=== PATIENT | male | born 1940 | race Caucasian/White ===

== ENCOUNTER 2018-11-20 13:48 | Observation (INO) ==
[2018-11-20] MEDS ORDERED: Isovue-370 500 ML BOTTLE IVP ONE (14:01)
[2018-11-20] MEDS ORDERED: 0.9 % Sodium Chloride 1,000 ML IVC ONE (14:01)
--- NOTE | 2018-11-20 14:01 | Emergency Department Note ---
Disposition Clinical Impression: Left upper extremity numbness, Left facial numbness, Abnormal finger-nose test Disposition: Admitted As Inpatient Condition: Fair Time of Disposition: 15:33 Neuro HPI - General Stated Complaint: R/O CVA From UC Time Seen by Provider: 11/20/18 13:51 Source: patient Mode of arrival: ambulatory Limitations: no limitations Nursing Notes Reviewed: Yes Vital Signs Reviewed: Yes - History of Present Illness HPI Narrative: Patient presenting to the ED with concerns of her left arm numbness and weakness. Patient reports he was exercising today and at around 11 PM started noticing that his left arm felt funny. Reports difficulty with coordination. 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 Denies any headache or changes in vision. No chest pain or shortness of breath. No abdominal pain. No nausea, vomiting, diarrhea. No history of stroke in the past. No anticoagulants. No head injury. States that the left side of his face. Also got numb. He went to his PCP who sent him to urgent care who sent him over here. Patient reports his symptoms have not improved, but they also have not worsened. - Related Data Home Medications: Home Medications Medication Instructions Recorded Confirmed RX: Cholecalciferol (D-3) [Vitamin 1,000 unit PO DAILY 11/20/18 11/20/18 D] RX: Levothyroxine [Synthroid] 50 mcg PO DAILY 11/20/18 11/20/18 RX: [place]-3/Dha/Epa/Fish Oil [Fish 1 each PO DAILY 11/20/18 11/20/18 Oil 1,000 mg Softgel] RX: Simvastatin 80 mg PO HS 11/20/18 11/20/18 RX: hydrOXYzine HCl [Hydroxyzine 25 mg PO HS PRN 11/20/18 11/20/18 HCl] Previous Rx's Medication Instructions Recorded RX: Clopidogrel [Plavix] 75 mg PO DAILY #30 tablet 11/21/18 Allergies/Adverse Reactions: Allergies Allergy/AdvReac Type Severity Reaction Status Date / Time No Known Allergies Allergy Verified 11/20/18 13:01 Review of Systems: As reviewed in the HPI. All other systems reviewed are negative or normal. Past Medical History - Past Medical History Attestation: Yes The following information was validated with the patient. Source: patient Medical history: Reports: non-contributory Surgical history: Reports: herniorrhaphy Psychiatric history: Reports: no psych history - Social History Smoking Status: Never smoker Smokeless Tobacco Status: No Alcohol use: Reports: none Physical Exam CONSTITUTIONAL: [well appearing, alert and in no acute distress] EYES: [EOMI, clear conjunctiva, PERRLA] HENT: [Normocephalic, atraumatic, moist mucus membranes, normal oropharynx] NECK: [normal inspection, full ROM, trachea midline, no obvious swelling] PULMONARY: [normal lung sounds bilaterally, normal chest rise and fall, no respiratory distress or stridor, no wheezes, no rales, no rhonchi CARDIOVASCULAR: [regular rate, regular rhythm, normal heart sounds, no murmurs, distal extremities are warm and well perfused] GASTROINSTESTINAL: [soft, non-tender, non-rigid, non-distended, no guarding, no rebound, normal bowel sounds] GENITOURINARY/RECTAL: [deferred] NEUROLOGIC: [Alert, oriented x3, normal speech, moves all extremities, his finger to nose is significantly abnormal on the left and is normal on the right, there is no dysdiadochokinesis of either upper extremity, there are no visual field deficits, strength and sensation are normal throughout, cranial nerves II through XII are intact] EXTREMITIES: [Normal inspection, full ROM, no tenderness, no pedal edema, normal capillary refill] MUSCULOSKELETAL: [no gross deformities, atraumatic] SKIN: [No cyanosis, no diaphoresis, normal color, warm, no rash] PSYCHIATRIC: [Anxious] Course - Reevaluation(s) Reevaluation #1: Stroke alert called at 1400. We will then proceed with CTA head and neck has patient does have concerns over her posterior circulation. We will speak with [facility] once imaging is completed [facility] did not recommend TPA as his NIH was low. CTA was unremarkable. They were agreeable with admission here for MRI and further testing. Patient accepted by the hospitalist service. Vital Signs Temperature 97.7 F 11/20/18 14:00 Pulse Rate 86 11/20/18 14:00 Respiratory Rate 88 11/20/18 14:00 Blood Pressure 120/106 11/20/18 14:00 O2 Sat by Pulse Oximetry 98 11/20/18 14:00 Temperature 97.7 F 11/20/18 14:02 Pulse Rate 82 03/25/19 14:34 Respiratory Rate 15 11/20/18 14:34 Blood Pressure 117/85 11/20/18 14:34 O2 Sat by Pulse Oximetry 95 11/20/18 14:34 Oxygen Delivery Oxygen Delivery Room Air Neuro Symptoms/Deficit - Lab Data Result diagrams: 11/21/18 04:52 11/21/18 04:52 Lab Results 11/20/18 11/20/18 Range/Units 14:02 14:02 WBC 9.5 (4.3-11.1) K/mcL RBC 5.62 H (4.19-5.50) M/mcL Hgb 17.7 H (12.9-16.9) g/dL Hct 52.5 H (37.5-50.1) % MCV 93.4 (83.0-100.0) fL MCH 31.5 (28.0-33.3) pg MCHC 33.7 (31.6-35.5) g/dL RDW 12.4 (11.5-14.5) % Plt Count 191 (140-400) K/mcL MPV 9.8 (9.4-12.4) fL PT 12.0 (9.4-12.1) Seconds INR 1.1 APTT 31.3 (26.0-36.0) Seconds NIH Stroke Scale - Level of Consciousness LOC: Alert - LOC Questions LOC Questions: Answers both correctly - LOC Commands LOC Commands: Performs both correctly - Best Gaze Best Gaze: Normal - Visual Visual: No visual loss - Facial Palsy Facial Palsy: Normal - Motor Arms Motor Arm-Left: No drift for 10 seconds Motor Arm-Right: No drift for 10 seconds - Motor Legs Motor Leg-Left: No drift for 5 seconds Motor Leg-Right: No drift for 5 seconds - Limb Ataxia Limb Ataxia: Present in ONE limb - Sensory Sensory: Mild to moderate loss, "not as sharp" - Best Language Best Language: No aphasia - Dysarthria Dysarthria: Normal - Extinction and Inattention Extinction and Inattention: Normal - NIHSS Total Score NIHSS Total Score: 2 TPA Checklist - LKW: 3-4.5 hrs Add. Warnings/Precautions Patient/family understanding: The patient/family members have been counseled and understood the risk, benefit, and alternatives of treatment. Attestation Statement - Attestation Attestation: I, Jersey Coughlin, examined this patient and my medical decision-making was reviewed with the JUNIOR ARCHITECT/PA/Advanced Practice Nurse/Resident Physician. I agree with the documented findings, disposition and treatment plan as described except to the extent set forth below. 78-year-old male presents emergency Department with concerns of acute ataxia. Patient was working on a gym when he suddenly developed difficulty controlling his left upper extremity. Never had symptoms like this in the past. Patient feels like his left upper extremity is weak and he is dropping objects. Denies syncope, fever, vomiting, diarrhea, recent trauma. Stroke alert was called during the initial evaluation. CT of the head was negative for acute fracture or intracranial hemorrhage. CTA head and neck negative for ELVO. [facility] neurology did not recommend TPA. Patient will be admitted to the hospital for further care and evaluation.
[2018-11-20 14:13] LABS: Hematocrit 52.5 % (37.5-50.1); Hemoglobin 17.7 g/dL (12.9-16.9); Mean Corpuscular HGB Conc 33.7 g/dL (31.6-35.5); Mean Corpuscular Hemoglobin 31.5 pg (28.0-33.3); Mean Corpuscular Volume 93.4 fL (83.0-100.0); Mean Platelet Volume 9.8 fL (9.4-12.4); Platelet Count 191 K/mcL (140-400); Red Blood Count 5.62 M/mcL (4.19-5.50); Red Cell Distribution Width 12.4 % (11.5-14.5)
[2018-11-20 14:20] LABS: INR 1.1
[2018-11-20 14:23] LABS: Activated Partial Thrombo Time 31.3 Seconds (26.0-36.0)
[2018-11-20] MEDS ORDERED: Naloxone 0.4 MG/ML INJ IVP PRN (15:48)
[2018-11-20] MEDS ORDERED: Ondansetron 4 MG/2 ML VIAL IVP PRN (15:48)
[2018-11-20 16:14] LABS: Troponin I < 0.03 ng/mL (< 0.04)
[2018-11-20 16:25] LABS: Alanine Aminotransferase 30 Units/L (7-52); Albumin 4.6 g/dL (3.5-5.7); Albumin/Globulin Ratio 1.7 (1.1-2.2); Alkaline Phosphatase 58 Units/L (34-104); Aspartate Amino Transferase 29 Units/L (13-39); BUN/Creatinine Ratio 10 (6-26); Bilirubin,Total 1.1 mg/dL (0.3-1.0); Blood Urea Nitrogen 11 mg/dL (8-23); Calcium 9.7 mg/dL (8.6-10.3); Carbon Dioxide 21 mEq/L (23-29); Chloride 105 mEq/L (98-107); Globulin 2.7 g/dL (2.4-3.5); Glucose 103 mg/dL (70-105); Osmolality,Calculated 286 (280-300); Phosphorous 2.9 mg/dL (2.7-4.5); Potassium 4.2 mEq/L (3.5-5.1); Sodium 138 mEq/L (136-145); Total Protein 7.3 g/dL (6.4-8.9); eGFR For Non-African Americans > 60 (> 60)
--- NOTE | 2018-11-20 16:34 | Internal Med History&Physical ---
Date of Encounter: 11/20/18 Time of Encounter: 16:02 Internal Medicine - H&P: HPI Chief complaint: left arm weakness Admitted From: Home Plans for Post Hospital Care: Home History of present illness: Mr. Webster is a 78 year old male with PMH of HLD, hypothyroidism who was sent to the ER from urgent care for evaluation of acute onset of left arm weakness and left sided facial numbness. Pt is seen and examined with family present at bedside. Pt states he was in his usual state of health today. He went to the gym and did his usual work out. On his way back home, he noted some discomfort in his left hand and arm when he tried putting his seat belt on. He states the weakness/discomfort worsened as he went on to eating his meal. He states that he had difficulty grabbing/holding things in his left hand due to which he went to the urgent care. In the urgent care, he reports of having intermittent left sided facial numbness which abruptly resolved. He was then transferred to [facility]. Stroke alert was called in the ER, NIHSS was low due to which tPA was not recommended by [facility] neurology. Pt underwent CT head, CTA head and neck, all of which were unremarkable for any acute abnormality. During my evaluation, pt continues to have difficulty with left upper extremity mobility but denies any numbness or tingling to the face or extremities. He denies any headache, dizziness, lightheadedness, or vision changes. No changes in ambulatory status is reported. Denies any shortness of breath, chest pain, or any other discomfort at this time. Ten point ROS is negative except as listed above Past Med Surg Social Fam HX - Past Medical History Medical history: hyperlipidemia, thyroid disease Psychiatric history: no psych history - Past Surgical History Surgical History: herniorrhaphy - Social History Smoking Status: Never smoker Smokeless Tobacco Status: No Alcohol use: none Internal Medicine - H&P: Meds Aspirin [Lo-Dose Aspirin EC] 81 mg PO DAILY 11/20/18 [History] Cholecalciferol (D-3) [Vitamin D] 1,000 unit PO DAILY 11/20/18 [History] Levothyroxine [Synthroid] 50 mcg PO DAILY 11/20/18 [History] [place]-3/Dha/Epa/Fish Oil [Fish Oil 1,000 mg Softgel] 1 each PO DAILY 11/20/18 [History] Simvastatin 80 mg PO HS 11/20/18 [History] Allergy/AdvReac Type Severity Reaction Status Date / Time No Known Allergies Allergy Verified 11/20/18 13:01 All Systems PM: A 10-system review of systems was performed and is negative for pertinent findings except as documented above in the HPI. Review of systems: Ten point ROS negative except as listed above - Constitutional Vitals: Temp Pulse Resp BP Pulse Ox 97.7 F 88 20 153/89 98 11/20/18 14:02 11/20/18 15:59 11/20/18 15:59 11/20/18 15:59 11/20/18 15:59 General appearance: Present: A&O X 3, pleasant, no acute distress, answers questions appropriately Exam: General: No acute distress, AAO x 3, pleasant elderly male HEENT: EOMI, PERRLA, NC/AT, no scleral icterus Respiratory: Clear to auscultate bilaterally, no wheezing, no rales Cardiovascular: Regular, Rate, Rhythm, No murmurs GI: Soft, Non tender, non distended, normal bowel sounds Ext: No edema, no tenderness, positive pulses Neuro: AAO x 3, CN II-XII intact, no visual field defects noted, finger to nose is abnormal on the left, no abnormalities noted on the right, full ROM Skin: No cyanosis, no diaphoresis, normal color, warm, no rash Internal Med - H&P Results - Labs CBC & Chem 7: 11/20/18 14:02 11/20/18 14:02 Labs: Short CBC 11/20/18 Range/Units 14:02 WBC 9.5 (4.3-11.1) K/mcL Hgb 17.7 H (12.9-16.9) g/dL Hct 52.5 H (37.5-50.1) % Plt Count 191 (140-400) K/mcL Cardiac Enzymes 11/20/18 Range/Units 14:02 Troponin I < 0.03 (< 0.04) ng/mL - Impressions ITS Impressions Head CT 11/20/18 14:01 IMPRESSION: No acute intracranial abnormality. Results were called by Dr. Mike Calderon MD to Dr. Coughlin on 11/20/2018 at 14:18. D/ / Mike Calderon MD / Mike Calderon MD Interpreting Provider: Mike Calderon MD Head CTA 11/20/18 14:01 IMPRESSION: No high-grade stenosis or focal occlusion involving the intracranial or cervical vasculature. No evidence of acute dissection. No evidence of aneurysm. D/ / 11/20/2018 15:01:07 Claus Yuen MD / fanny Interpreting Provider: Claus Yuen MD Neck CTA 11/20/18 14:02 IMPRESSION: No high-grade stenosis or focal occlusion involving the intracranial or cervical vasculature. No evidence of acute dissection. No evidence of aneurysm. D/ / 11/20/2018 15:01:07 Claus Yuen MD / fanny Interpreting Provider: Claus Yuen MD - Summary of Assessment and Plan Summary of Assessment and Plan: Patient is a pleasant 78y/o male with PMH of hypothyroidism, hyperlipidemia who presented to the ER for evaluation of acute onset of left upper extremity discomfort/weakness. 1. Left upper extremity weakness Clinical presentation concerning for CVA vs. TIA CTA head/neck, CT head negative for acute abnormality f/u MR head f/u 2D echo, carotid doppler PT/OT eval bedside speech eval pending aspirin, statin neurology evaluation requested continue tele monitoring f/u lipid panel 2. HLD continue home medications 3. Hypothyroidism continue home dose of levothyroxine DVT ppx: Heparin SQ LOS < 2 midnights Code status: Full code - Time Spent With Patient Total time spent is greater than 50% in coordination of care (as documented) at patient's floor/unit and/or counseling patient:
[2018-11-20] MEDS: *HR* Heparin 5,000 UNIT/ML VIAL SQ SCH (21:24)
[2018-11-20] MEDS ORDERED: Perflutren Lipid Microsphere 1.3 ML in 0.9 % Sodium Chloride 8.7 ML IVP ONE (21:52)
[2018-11-20] MEDS ORDERED: HydrOXYzine SYP 10 MG/5 ML UDC PO PRN (22:13)
[2018-11-21] MEDS: *HR* Heparin 5,000 UNIT/ML VIAL SQ SCH (05:37)
[2018-11-21 06:10] LABS: Basophils % 0.5 %; Eosinophils # 0.1 K/mcL (0.0-0.6); Eosinophils % 1.2 %; Hemoglobin 16.4 g/dL (12.9-16.9); Immature Granulocytes % 0.3 % (0-4); Lymphocytes % 29.8 %; Mean Corpuscular HGB Conc 33.5 g/dL (31.6-35.5); Mean Corpuscular Hemoglobin 30.8 pg (28.0-33.3); Mean Corpuscular Volume 91.9 fL (83.0-100.0); Mean Platelet Volume 10.5 fL (9.4-12.4); Monocytes # 0.8 K/mcL (0.0-1.3); Monocytes % 12.2 %; Neutrophils # 3.7 K/mcL (1.6-8.9); Platelet Count 163 K/mcL (140-400); Red Blood Count 5.33 M/mcL (4.19-5.50); Red Cell Distribution Width 12.4 % (11.5-14.5)
[2018-11-21 06:31] LABS: BUN/Creatinine Ratio 11 (6-26); Blood Urea Nitrogen 10 mg/dL (8-23); Calcium 8.9 mg/dL (8.6-10.3); Carbon Dioxide 23 mEq/L (23-29); Chloride 108 mEq/L (98-107); Chol/HDL Ratio 2.6 (0-4.9); Cholesterol 112 mg/dL (< 200); Glucose 91 mg/dL (70-105); HDL Cholesterol 43 mg/dL (40-59); LDL Cholesterol,Calculated 42 mg/dL (0-99); Magnesium 2.1 mg/dL (1.6-2.6); Osmolality,Calculated 285 (280-300); Phosphorous 2.7 mg/dL (2.7-4.5); Potassium 3.7 mEq/L (3.5-5.1); Sodium 138 mEq/L (136-145); Triglycerides 136 mg/dL (< 150); eGFR For Non-African Americans > 60 (> 60)
[2018-11-21] MEDS ORDERED: Aspirin Enteric Coated 81 MG Tablet PO SCH (09:00)
[2018-11-21] MEDS ORDERED: Fish Oil 1,000 Mg Softgel PO SCH (09:00)
[2018-11-21] MEDS ORDERED: Cholecalciferol (D-3) 1,000 UNIT TABLET PO SCH (09:00)
--- NOTE | 2018-11-21 09:33 | Internal Med Progress Note ---
Hospitalist Progress Note - Encounter Date of Encounter: 11/21/18 Time of Encounter: 09:31 - Subjective Interval History: Pt seen and examined in the room. He is alert and oriented. reported clumsiness of left hand, but denies weakness or numbness. No trouble speech or facial droop. - Exam Vitals: Temp Pulse Resp BP Pulse Ox 97.8 F 63 16 137/77 97 11/21/18 06:35 11/21/18 06:35 11/21/18 06:35 11/21/18 06:35 11/21/18 06:35 Exam: General: No acute distress, AAO x 3, pleasant elderly male Respiratory: Clear to auscultate bilaterally, no wheezing, no rales Cardiovascular: Regular, Rate, Rhythm, No murmurs GI: Soft, Non tender, non distended, normal bowel sounds Ext: No edema, no tenderness, positive pulses Skin: No cyanosis, no diaphoresis, normal color, warm, no rash. Neurological: Mental status: pt is awake and oriented to person, place, time, and situation Speech: fluent, comprehension, repetition, and naming intact CN: PERRLA, EOMI, intact sensation to light touch, face and smile symmetric, good hearing of whispered word, uvula midline, 5/5 strength of shoulder shrug, no tongue deviation. 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 MRI brain showed acute ischemic stroke at the border of right frontal and parietal lobe. Patient takes aspirin and statins at home. Etiology remains undetermined. Lipid panel showed well controlled with LDL and a normal HDL. Carotid Doppler showed insignificant stenosis of bilateral ICA. Pending echocardiogram. Telemetry tracing revealed and no atrial fibrillation recorded. Neurology consult, appreciate help. (2) Hypothyroidism Current Visit: No Status: Chronic Assessment and Plan: Continue home medication. (3) Hyperlipidemia Current Visit: No Status: Chronic Assessment and Plan: Repeat her lipid panel showed well-controlled LDL and a normal HDL. Continue home statins. (4) DVT prophylaxis Current Visit: Yes Status: Acute Assessment and Plan: Heparin subcutaneous. - Time Spent with Patient Total time spent is greater than 50% in coordination of care (as documented) at patient's floor/unit and/or counseling patient: Greater than 35 minutes Plan of Care Discussed with: patient Internal Medicine: Result - Labs CBC & Chem 7: 11/21/18 04:52 11/21/18 04:52 Labs: Short CBC 11/20/18 11/21/18 Range/Units 14:02 04:52 WBC 9.5 6.5 (4.3-11.1) K/mcL Hgb 17.7 H 16.4 (12.9-16.9) g/dL Hct 52.5 H 49.0 (37.5-50.1) % Plt Count 191 163 (140-400) K/mcL Neutrophils # 3.7 (1.6-8.9) K/mcL BMP 11/20/18 11/21/18 14:02 04:52 Sodium 138 138 Potassium 4.2 3.7 Chloride 105 108 H Carbon Dioxide 21 L 23 BUN 11 10 Creatinine 1.06 0.91 Glucose 103 91 Calcium 9.7 8.9 Cardiac Enzymes 11/20/18 Range/Units 14:02 Troponin I < 0.03 (< 0.04) ng/mL Liver Function 11/20/18 Range/Units 14:02 Total Bilirubin 1.1 H (0.3-1.0) mg/dL AST 29 (13-39) Units/L ALT 30 (7-52) Units/L Alkaline Phosphatase 58 (34-104) Units/L Albumin 4.6 (3.5-5.7) g/dL - ABG Interpretation ABG results: PT/INR, D-dimer PT 12.0 Seconds (9.4-12.1) 11/20/18 14:02 - Impressions Impressions Head CT 11/20/18 14:01 IMPRESSION: No acute intracranial abnormality. Results were called by Dr. Mike Calderon MD to Dr. Coughlin on 11/20/2018 at 14:18. D/ / Mike Calderon MD / Mike Calderon MD Interpreting Provider: Mike Calderon MD Head CTA 11/20/18 14:01 IMPRESSION: No high-grade stenosis or focal occlusion involving the intracranial or cervical vasculature. No evidence of acute dissection. No evidence of aneurysm. D/ / 11/20/2018 15:01:07 Claus Yuen MD / fanny Interpreting Provider: Claus Yuen MD Neck CTA 11/20/18 14:02 IMPRESSION: No high-grade stenosis or focal occlusion involving the intracranial or cervical vasculature. No evidence of acute dissection. No evidence of aneurysm. D/ / 11/20/2018 15:01:07 Claus Yuen MD / fanny Interpreting Provider: Claus Yuen MD Brain MRI 11/20/18 15:50 IMPRESSION: Mild small vessel ischemic change with multiple small prior lacunar infarcts Acute infarct in the right posterior frontal parietal junction cortex. D/ / Walter Ortega / Walter Ortega Interpreting Provider: Walter Ortega Consult Discharge Plan - Plan Referrals: Blanco Orta MD [Primary Care Provider] - 11/27/18 9:00 am () _ (2) Hypothyroidism Qualifiers: Hypothyroidism type: unspecified Qualified Code(s): E03.9 - Hypothyroidism, unspecified (3) Hyperlipidemia Qualifiers: Hyperlipidemia type: unspecified Qualified Code(s): E78.5 - Hyperlipidemia, unspecified
--- NOTE | 2018-11-21 10:01 | Neurology - Consult Note ---
<Cathleen Bass - Last Filed: 11/21/18 12:05> Date of Encounter: 11/21/18 Time of Encounter: 09:56 Assessment and Plan (1) Acute ischemic right middle cerebral artery (MCA) stroke Status: Acute 78yo male with acute infarction right posterior frontal parietal junctuon co rtex. With left upper extremity ataxia and numbness. -risk factor age, HLD -Head CT, neck/had CTA showed no acute intracranial abnormality. -brain MRI was performed admitted showed acute infarct in the right posterior frontal parietal junction cortex. Mild small vessel ischemic change with multiple small prior lacunar infarcts. -echo: EF=60%, no PFO recommendations: Patient has an acute infarction right posterior frontal parietal junctuon cortex despite taking simvastatin and aspirin. His aspirin should be discontinued and started on plavix daily with statin. PT/OT could be done. Will await the carotid u/s results. History of Present Illness Chief complaint: Left arm weakness HPI: Mr. Webster is a 78 year old male with past medical history of hyperlipidemia and hypothyroidism who presented to [facility] on 11/20/2018 due to left arm weakness. Nephrology was consulted on 11/21/2018 for TIA. Upon my examination the patient reports that his left upper extremity numbness and tingling is resolved and he has better coordination in it as well compared to yesterday. He stated yesterday after he left [place] he got into his car and noticed numbness and tingling of his left upper extremity and had difficulty with putting on his seatbelt. He felt like he had no control of his left upper extremity. This occurred about 11 AM. He went home but then later went to urgent care whom sent him to the ED. He denied fever, chills, confusion, dysarthria, vertigo, ataxia, headache, fall, trauma. He denied palpitations however sometimes he does note his heart skips a beat. He denied smoking, drug use, alcohol use. He is active in works out with [employer] Tuesday, Tuesday, Tuesday. He has never had a stroke or MT. In the emergency department vitals were unremarkable. CBC, CMP, PT/INR, magnesium, lipid panel were all unremarkable. A stroke alert was called and [facility] neurology does not recommend TPA due to low NIHSS score. Head CT, neck/had CTA showed no acute intracranial abnormality. A brain MRI was performed admitted showed acute infarct in the right posterior frontal parietal junction cortex. Mild small vessel ischemic change with multiple small prior lacunar infarcts. Past Med Surg Social Fam HX - Past Medical History Attestation: Yes The following information was validated with the patient. Source: patient Medical history: hyperlipidemia, thyroid disease Psychiatric history: no psych history - Past Surgical History Surgical History: herniorrhaphy Additional surgical history: tonsilectomy - Social History Smoking Status: Never smoker Smokeless Tobacco Status: No Alcohol use: none Drug use: none - Family History Father Living Status: Age at : 72 Cause of : MT Mother Living Status: Age at : 85 Cause of : CVA complicaitons Medications and Allergies RX: Cholecalciferol (D-3) [Vitamin D] 1,000 unit PO DAILY 11/20/18 [History] RX: Levothyroxine [Synthroid] 50 mcg PO DAILY 11/20/18 [History] RX: [place]-3/Dha/Epa/Fish Oil [Fish Oil 1,000 mg Softgel] 1 each PO DAILY 11/20/18 [History] RX: Simvastatin 80 mg PO HS 11/20/18 [History] RX: hydrOXYzine HCl [Hydroxyzine HCl] 25 mg PO HS PRN 11/20/18 [History] RX: Clopidogrel [Plavix] 75 mg PO DAILY #30 tablet 11/21/18 [Rx] Allergy/AdvReac Type Severity Reaction Status Date / Time No Known Allergies Allergy Verified 11/20/18 13:01 All Systems: The remainder of the systems were reviewed and are negative - Constitutional Constitutional ROS IM: weakness, no chills, no fatigue, no fever(s), no frequent falls, no headache(s) - Nose, Mouth, Throat Nose, mouth and throat: no disequilibrium, no dizziness, no vertigo - Cardiovascular Cardiovascular ROS IM: no chest pain, no palpitations - Respiratory Respiratory IM: no cough, no dyspnea, no wheezing - Gastrointestinal Gastrointestinal: no abdominal pain, no nausea, no vomiting - Musculoskeletal Musculoskeletal ROS IM: no joint swelling, no neck pain - Integumentary Integumentary IM: no new lesions, no skin ulcer - Neurological Neurological ROS: lack of coordination, numbness, paresthesias, no abnormal gait, no abnormal hearing, no abnormal speech, no confusion, no disequilibrium, no dizziness, no frequent falls, no headache(s) Physical Examination - Vital Signs Vital Signs: Initial Vital Signs Temp Pulse Resp BP Pulse Ox 97.7 F 86 88 120/106 98 11/20/18 14:00 11/20/18 14:00 11/20/18 14:00 11/20/18 14:00 11/20/18 14:00 - Exam Exam: Examination: General Examination: *CONSTITUTIONAL: No acute distress *GENERAL APPEARANCE OF PATIENT elderly male, appropriate hygiene *EYES: pupils equal, round, reactive to light and accommodation, conjunctiva clear Musculoskeletal: *GAIT AND STATION normal, with normal Romberg testing, no abnormalities such as broad base gait or spasticity *ASSESSMENT OF MUSCLE STRENGTH IN THE UPPER AND LOWER EXTREMITIES bilateral deltoid, bicep, tricep, publicity writer strength, hip flexors ,anterior tibialis, dorsoflexion of the foot 5/5 *MUSCLE TONE IN THE UPPER AND LOWER EXTREMITIES normal. No abnormal movements, fasciculations or atrophy identified. Neurological: *ORIENTATION to person, place, time *RECURRENT AND REMOTE MEMORY intact *ATTENTION AND CONCENTRATION are normal *LANGUAGE FUNCTION no significant aphasia or dysarthia was noted. *FUND OF KNOWLEDGE aware of current events, past history, vocabulary *MENTAL attention span and concentration normal. *CN II optic fundi were normal, no papilledema noted. *CN III,IV, PERRLA extraocular eye movements were full, no nystagmus and no ptosis noted. *CN V shows normal sensation and jaw opens symmetrically. *CN VII shows normal facial movement symmetrically, upper and lower bilaterally. *CN VIII shows no significant hearing loss on exam *CN IX,,X palate elevated symmetrically *CN XI normal strength in the sternocleidomastoid muscles, symmetrical shoulder shrugging. *CN XII tongue protruded in the midline, with normal strength and movement. *SENSORY EXAMINATION and light touch(vibration sense). *REFLEXES: deep tendon reflexes were normal and symmetrical , grade 2/4 diffusely, no pathological reflexes were noted. *CEREBELLAR TESTING dysmetria of left finger to nose, no pronator drift *PAIN LEVEL 0 Results - Laboratory Findings CBC and BMP: 11/21/18 04:52 11/21/18 04:52 Abnormal lab findings: Abnormal lab results Chloride 108 mEq/L (98-107) H 11/21/18 04:52 Total Bilirubin 1.1 mg/dL (0.3-1.0) H 11/20/18 14:02 Consult Discharge Plan - Plan Instructions: Clopidogrel (By mouth), Ischemic Stroke (DC), Ischemic Stroke (GEN), Self Care Measures After a Stroke (DC), Self Care Measures After a Stroke (GEN) Referrals: Rodney Koch [Partnered Physician] - (Appointment has been requested. Our offices will call with an appointment time and date.) Blanco Orta MD [Primary Care Provider] - 11/27/18 9:00 am () Prescriptions: RX: Clopidogrel [Plavix] 75 mg PO DAILY #30 tablet <Nelson Dhillon - Last Filed: 11/21/18 16:00> Date of Encounter: 11/21/18 Assessment and Plan (1) Acute ischemic right middle cerebral artery (MCA) stroke Status: Acute History of Present Illness HPI: The chart was reviewed, the patient was seen and examined [id number]. My assessment was done independently. Case was discussed with the OUTSOLE CEMENTER.I have personally performed a [id number] assessment of the patient and have reviewed the PA/MANAGER DIGITAL note. My impressions are as follows: As stated above. Patient had been exercising at his local [place] and when he was leaving at about 11:00 and gotten into his car and experienced some clumsiness with the left upper extremity. So experienced some paresthesias. He denied headache denied visual changes denied difficulty with balance. Symptoms onset yesterday and today he feels that he is significantly improved however not quite back to baseline. CTA scan of the head and neck were negative. MRI scan of the brain does reveal an acute infarct in the right posterior parietal junction. There were however several old lacunar infarcts identified. He denies hypertension, he does have hyperlipidemia denies diabetes mellitus denies tobacco smoking. He was taking an aspirin 81 mg daily. He was deemed not to be a candidate for TPA. Currently he is alert and oriented and in no acute distress. All Systems: The remainder of the systems were reviewed and are negative Review of Systems: The balance of the systems review is negative. Physical Examination - Vital Signs Vital Signs: Initial Vital Signs Temp Pulse Resp BP Pulse Ox 97.7 F 86 88 120/106 98 11/20/18 14:00 11/20/18 14:00 11/20/18 14:00 11/20/18 14:00 11/20/18 14:00 - Exam Exam: General Examination: *CONSTITUTIONAL: normal *GENERAL APPEARANCE OF PATIENT appears healthy and well groomed *EYES: pupils equal, round, reactive to light and accommodation, conjunctiva clear without masses or ulcerations, fundi normal. *CARDIOVASCULAR no peripheral edema, distal temperature normal, dorsalis pedis pulses normal. Refer to vital signs Musculoskeletal: *GAIT AND STATION normal, with normal Romberg testing, no abnormalities such as broad base gait or spasticity *ASSESSMENT OF MUSCLE STRENGTH IN THE UPPER AND LOWER EXTREMITIES left deltoid, bicep, tricep, publicity writer strength are all about 4/5, left hip flexors ,anterior tibialis, dorsoflexion of the foot were all 4+/5 all muscles of the right upper and right lower extremities were normal. *MUSCLE TONE IN THE UPPER AND LOWER EXTREMITIES normal. No abnormal movements, fasciculations or atrophy identified. Neurological: *ORIENTATION to time and place *RECURRENT AND REMOTE MEMORY intact *ATTENTION AND CONCENTRATION are normal *LANGUAGE FUNCTION no significant aphasia or dysarthia was noted. *FUND OF KNOWLEDGE aware of current events, past history, vocabulary *MENTAL attention span and concentration normal. *CN II optic fundi were normal, no papilledema noted. *CN III,IV, PERRLA extraocular eye movements were full, no nystagmus and no ptosis noted. *CN V shows normal sensation and jaw opens symmetrically. *CN VII shows normal facial movement symmetrically, upper and lower bilaterally. *CN VIII shows no significant hearing loss on examination in the office. *CN IX,,X palate elevated symmetrically and normal gag reflex was noted. *CN XI normal strength in the sternocleidomastoid muscles, symmetrical shoulder shrugging. *CN XII tongue protruded in the midline, with normal strength and movement. *SENSORY EXAMINATION pinprick sensation intact, and light touch(vibration sense). *REFLEXES: deep tendon reflexes were normal and symmetrical , grade 2/4 diffusely, no pathological reflexes were noted. *CEREBELLAR TESTING normal finger to nose, heel/knee/dubon, and tandem walk. *PAIN LEVEL 0 Results - Laboratory Findings CBC and BMP: 11/21/18 04:52 11/21/18 04:52 Abnormal lab findings: Abnormal lab results Chloride 108 mEq/L (98-107) H 11/21/18 04:52 Total Bilirubin 1.1 mg/dL (0.3-1.0) H 11/20/18 14:02
[2018-11-21 11:02] VITALS: BP 128/80
--- NOTE | 2018-11-21 12:24 | Discharge Summary ---
- NOTES TO OUTPATIENT PROVIDER Notes to Outpatient Provider: f/u with PCP within a week. F/u with neurology within 2 weeks. Orders not resulted at time of discharge: Pending orders 11/22/18 04:00 BMP [Basic Metabolic Panel] AM 0400 Complete Blood Count w/o Diff [HEME] AM 0400 Date of Encounter: 11/21/18 Time of Encounter: 12:22 - Discharge Diagnosis (1) Acute ischemic right middle cerebral artery (MCA) stroke Priority: Primary Status: Acute (2) Hypothyroidism Priority: Secondary Status: Chronic Qualifiers: Hypothyroidism type: unspecified Qualified Code(s): E03.9 - Hypothyroidism, unspecified (3) Hyperlipidemia Priority: Secondary Status: Chronic Qualifiers: Hyperlipidemia type: unspecified Qualified Code(s): E78.5 - Hyperlipidemia, unspecified (4) DVT prophylaxis Priority: Primary Status: Acute Hospital course: Mr. Webster is a 78 year old male with PMH of HLD, hypothyroidism who was sent to the ER from urgent care for evaluation of acute onset of left arm weakness and left sided facial numbness. Pt is seen and examined with family present at bedside. Pt states he was in his usual state of health today. He went to the gym and did his usual work out. On his way back home, he noted some discomfort in his left hand and arm when he tried putting his seat belt on. He states the weakness/discomfort worsened as he went on to eating his meal. He states that he had difficulty grabbing/holding things in his left hand due to which he went to the urgent care. In the urgent care, he reports of having intermittent left sided facial numbness which abruptly resolved. He was then transferred to [facility]. Stroke alert was called in the ER, NIHSS was low due to which tPA was not recommended by [facility] neurology. Pt underwent CT head, CTA head and neck, all of which were unremarkable for any acute abnormality. MRI brain showed acute ischemic stroke at the junction between the left frontal and parietal lobe. Neurology was consulted for many to change aspirin to Plavix. Patient left-sided weakness has significantly improved since yesterday. Benedict is discharged home today, he was instructed to continue Plavix daily, follow-up with PCP and neurology as scheduled. Discharge discussed with: patient Time spent discussing smoking cessation with patient: more than 10 minutes - Time Spent with Patient Total time spent providing and/or coordinating discharge services: Time spent: Greater than 30 minutes - Discharge Medications Prescriptions: New Clopidogrel [Plavix] 75 mg PO DAILY #30 tablet Continue Levothyroxine [Synthroid] 50 mcg PO DAILY Cholecalciferol (D-3) [Vitamin D] 1,000 unit PO DAILY [place]-3/Dha/Epa/Fish Oil [Fish Oil 1,000 mg Softgel] 1 each PO DAILY Simvastatin 80 mg PO HS hydrOXYzine HCl [Hydroxyzine HCl] 25 mg PO HS PRN PRN Reason: Insomnia Discontinued Aspirin [Lo-Dose Aspirin EC] 81 mg PO DAILY Home Medications: Cholecalciferol (D-3) [Vitamin D] 1,000 unit PO DAILY 11/20/18 [History] Levothyroxine [Synthroid] 50 mcg PO DAILY 11/20/18 [History] [place]-3/Dha/Epa/Fish Oil [Fish Oil 1,000 mg Softgel] 1 each PO DAILY 11/20/18 [History] Simvastatin 80 mg PO HS 11/20/18 [History] hydrOXYzine HCl [Hydroxyzine HCl] 25 mg PO HS PRN 11/20/18 [History] Clopidogrel [Plavix] 75 mg PO DAILY #30 tablet 11/21/18 [Rx] Allergies/Adverse Reactions: Allergy/AdvReac Type Severity Reaction Status Date / Time No Known Allergies Allergy Verified 11/20/18 13:01 Date of admission: 11/20/18 18:58 Primary care physician: Blanco Orta MD Consults: 11/20/18 15:50 Consult to Neurology [CONS] Routine Consulting Provider: Neurology [facility] Reason for Consult: TIA Call Completed: Yes 11/20/18 15:52 Consult to Physical Therapy [CONS] Stat Comment: Evaluate, develop and implement POC Reason for Consult: TIA Does patient have active BEDREST order?: No Is patient medically & hemodynamically stable?: Yes Patient assessed for mobility or mobilized this visit?: Yes Anticipated date of discharge: 11/21/18 - Constitutional Vitals: Temp Pulse Resp BP Pulse Ox 97.5 F L 68 16 128/80 96 11/21/18 11:01 11/21/18 11:01 11/21/18 11:01 11/21/18 11:01 11/21/18 11:01 General appearance: Present: A&O X 3, pleasant, no acute distress, answers questions appropriately Exam: General: No acute distress, AAO x 3, pleasant elderly male Respiratory: Clear to auscultate bilaterally, no wheezing, no rales Cardiovascular: Regular, Rate, Rhythm, No murmurs GI: Soft, Non tender, non distended, normal bowel sounds Ext: No edema, no tenderness, positive pulses Skin: No cyanosis, no diaphoresis, normal color, warm, no rash. Neurological: Mental status: pt is awake and oriented to person, place, time, and situation Speech: fluent, comprehension, repetition, and naming intact CN: PERRLA, EOMI, intact sensation to light touch, face and smile symmetric, good hearing of whispered word, uvula midline, 5/5 strength of shoulder shrug, no tongue deviation. Motor: good tonus, 5/5 strength in all extremities Sensation intact to light touch DTR: 2+ in biceps and knee Cerebellar: FTN and HTS without dysmetria, no impairment with DELVIN Downgoing Babinsky - Patient Status Disposition: Home, Self-Care Condition: Fair Functional capacity at discharge: independent ambulation Overall status at discharge: patient is progressing back to baseline - Discharge Instructions Follow Up With: Blanco Orta MD [Primary Care Provider] - 11/27/18 9:00 am () Forms: ED Satisfaction Letter - Diet and Activity Activity: increase activity as tolerated Diet: low fat, low cholesterol, low salt diet
--- NOTE | 2018-11-21 17:54 | Electrocardiograph Report ---
[place] [id number] Test Date: 2018-11-20 Pat Name: Williams Webster Department: [id number] Room: 3B32 Gender: M Mechanic Senior: : 1940 Requested By: Evaristo Orantes Order Number: [id number] Reading MD: Chloe Farmer Measurements Intervals [place] Rate: 86 P: 61 MA: 156 QRS: 53 QRSD: 91 T: 52 QT: 358 QTc: 429 Interpretive Statements Sinus rhythm Abnormal R-wave progression, early transition Electronically Signed On 11-21-2018 17:52:58 EDT by Chloe Farmer
== END 2018-11-21 15:49 | disposition home or self-care (01) ==
LOC: EMEROOARM 13:48 → 3BNU 13:48
PROVIDERS: ADMIT Internal Medicine; ATTEND Internal Medicine